=== PATIENT | male | born 1985 | race Caucasian/White ===

== ENCOUNTER → 2022-06-17 | Outpatient (CLI) | payer OTHER ==
[2022-06-17 10:09] LABS: FREE T4 (FREE THYROXINE) 1.1 ng/dL (0.76-1.46); THYROID STIMULATING HORMONE 0.41 uIU/mL (0.36-3.74)
== END | disposition home or self-care (01) ==
LOC: MSR 09:06
PROVIDERS: ATTEND Chiropractor
DX: M19.012 Primary osteoarthritis, left shoulder (principal); I70.0 Atherosclerosis of aorta; R07.9 Chest pain, unspecified; E07.9 Disorder of thyroid, unspecified; B00.9 Herpesviral infection, unspecified
CPT/HCPCS: 71046; 84439; 84443; 84481; 86694; 36415-L1; 36415-TC